=== PATIENT | female | born 1930 | race Caucasian/White ===

== ENCOUNTER → 2016-06-26 | Outpatient (CLI) | payer OTHER, MEDICARE ==
[~2016-06-26] MED LIST: CALCTAB13 PO; CYCL0.052 OPL; MULTTAB58 PO; PREMARIN PATCH TOP; ZCRUNK
--- NOTE | 2016-06-26 14:30 | MAMMOGRAPHY REPORT ---
BILATERAL DIGITAL SCREENING MAMMOGRAM WITH CAD: 06/26/2016 CLINICAL HISTORY: Routine screening examination. TECHNIQUE: Bilateral CC, MLO and right XCCM views were obtained. Current study was also evaluated w ith a Computer Aided Detection (CAD) system. COMPARISON: Comparison is made to exams dated: 05/23/2015 mammogram, 05/29/2013 mammogram, 05/31/2014 mammogram, 04/18/2012 mammogram, 04/16/2011 mammogram, and 04/09/2010 ultrasound - [facility]. BREAST COMPOSITION: There are scattered areas of fibroglandular density in both breasts. FINDINGS: There is a newly visualized 4.7 mm mass in the approximate 3:00 middle to posterior right breast, for which additional spot compression tomosynthesis views and possibly ultrasound are recom mended. There is a possible new cluster of microcalcifications in the upper outer middle to anterio r left breast, warranting additional spot magnification views. No other suspicious mass, architectural distortion or cluster of microcalcifications is seen bilater ally. IMPRESSION: ACR BI-RADS CATEGORY 0: INCOMPLETE EVALUATION: NEED ADDITIONAL IMAGING EVALUATION The newly visualized 4.7 mm mass in the approximate 3:00 right breast, and new clustered microcalcif ications in the upper outer left breast need additional imaging evaluation. The patient will be called to schedule an appointment. Approximately 10% of breast cancers are not detected with mammography. A negative mammographic repor t should not delay biopsy if a clinically suggestive mass is present. Lala Tubbs M.D. ay/:06/26/2016 10:27:39 Bond Runner: Bonny MATA(R)(M), [facility] letter sent: Addl Imaging 0 BI-RADS Code: ACR BI-RADS Category 0: Incomplete Evaluation: Need Additional Imaging Evaluation
== END | disposition home or self-care (01) ==
LOC: C.MAMM 09:27
PROVIDERS: ATTEND Family Medicine
DX: Z12.31 Encounter for screening mammogram for malignant neoplasm of breast (principal); N63 Unspecified lump in breast; R92.0 Mammographic microcalcification found on diagnostic imaging of breast

== ENCOUNTER → 2016-07-06 | Outpatient (CLI) | payer OTHER, MEDICARE ==
--- NOTE | 2016-07-06 14:26 | MAMMOGRAPHY REPORT ---
BILATERAL DIGITAL DIAGNOSTIC MAMMOGRAM TOMOSYNTHESIS AND TARGETED RIGHT ULTRASOUND: 07/06/2016 CLINICAL HISTORY: 85-year-old woman called back from screening mammography for a small circumscribed mass in the right breast and left breast microcalcification. Family history of breast cancer = 2 s isters. TECHNIQUE: Spot magnification left CC and ML, spot compression right CC and MLO tomosynthesis images were obtained. COMPARISON: Comparison is made to exams dated: 06/26/2016 mammogram, 05/23/2015 mammogram, 05/31/2014 mammogram, 05/29/2013 mammogram, 04/18/2012 mammogram, and 04/16/2011 mammogram - [facility]. BREAST COMPOSITION: There are scattered areas of fibroglandular density in both breasts. FINDINGS: The spot compression tomosynthesis views of the right breast demonstrate persistence of a well-circumscribed 4.7 x 4.2 mm mass in the approximate 3:00 middle one third of the breast. No ass ociated calcification or architectural distortion. Further characterization with ultrasound was per formed. The spot magnification CC and ML views of the left breast demonstrate a grouping of somewhat coarse calcifications which may be forming a rim in the upper outer middle one third of the left breast, th at are increased comparing to the 05/31/2014 and 05/23/2015 mammograms. Although this most likely r epresents early formation of a benign coarse calcification, a short interval follow-up diagnostic ma mmogram including spot magnification views is recommended to ensure stability in 6 months. No obvio us suspicious mass or architectural distortion is seen in the left breast. Real-time high-resolution sonographic evaluation was performed in the 2:00 to 4:00 axes of the right breast. In the 2:30 axis, 5 cm from the nipple, there is a circumscribed anechoic cyst with manager terminal ior acoustic enhancement, measuring 4.1 x 3.5 x 4.1 mm. This correlates well in size, shape and loc ation as the mammographic mass and is benign. IMPRESSION: ACR-BI-RADS CATEGORY 3: PROBABLY BENIGN, TARGETED ULTRASOUND ACR-BI-RADS CATEGORY 3: PA OBABLY BENIGN 1. A benign anechoic simple cysts in the 2:30 right breast seen on ultrasound correlates with a new ly visualized circumscribed mammographic mass. This is benign and no further close follow-up is nee ded at this time. 2. There is a small grouping of somewhat coarse calcifications in the upper outer middle one third of the left breast. This most likely represents early formation of a benign coarse calcification, b ut given the interval increase compared to prior mammograms, a short interval follow-up diagnostic m ammogram including spot magnification views of the left breast is recommended to ensure stability an d/or coarsening in 6 months. These results and recommendations were discussed with the patient at the time of the exam. She tent atively scheduled a follow-up appointment prior to leaving our department. Approximately 10% of breast cancers are not detected with mammography. A negative mammographic repor t should not delay biopsy if a clinically suggestive mass is present. Lala Tubbs M.D. ay/:07/06/2016 11:49:46 Solar[employer] Sales: Jess MATA(Qasim)(M), [facility] letter sent: Follow Up Recommended 3 BI-RADS Code: ACR-BI-RADS Category 3: Probably Benign Ultrasound BI-RADS: ACR-BI-RADS Category 3: P robably Benign
--- NOTE | 2016-07-08 07:39 | CODING QUERY NO DIAGNOSIS ---
TREATMENT RENDERED WITHOUT A DIAGNOSIS Dr. Duncan, To promote full compliance with coding requirements relating to patient care, physician participation is requested in all cases of certified coder uncertainty. Please assist us with providing a diagnosis/symptom for the test(s) below: A diagnosis/symptom was not documented on your Order. A valid diagnosis/symptom is required to bill all insurances. Please remember that we are unable to code a diagnosis of rule out, probable, possible, questionable, or suspected. Tests that require a diagnosis: * BILATERAL DIAG TOMOSYNTHESIS DIAGNOSIS: * DIAG CALL BACK MARK W/O CAD DIAGNOSIS: * ULTRASOUND BREAST LIMITED DIAGNOSIS: DATE OF SERVICE: 07/06/16 Provider Signature: Date: Thank you Alban Evans [facility] Information Management Once completed, please kindly fax back to [phone] For questions please call [phone]
== END | disposition home or self-care (01) ==
LOC: C.MAMM 11:13
PROVIDERS: ATTEND Family Medicine
DX: R92.8 Other abnormal and inconclusive findings on diagnostic imaging of breast (principal); N60.01 Solitary cyst of right breast; R92.1 Mammographic calcification found on diagnostic imaging of breast

== ENCOUNTER → 2017-01-11 | Outpatient (CLI) | payer OTHER, MEDICARE ==
--- NOTE | 2017-01-11 12:36 | MAMMOGRAPHY REPORT ---
UNILATERAL LEFT DIGITAL DIAGNOSTIC MAMMOGRAM TOMOSYNTHESIS WITH CAD: 01/11/2017 CLINICAL HISTORY: Follow-up of a probably benign grouping of somewhat coarse calcifications in the up per outer middle to anterior left breast. TECHNIQUE: Left CC and MLO 2-D and tomosynthesis images, spot indication left CC and ML views were ob tained. Current study was also evaluated with a Computer Aided Detection (CAD) system. COMPARISON: Comparison is made to exams dated: 07/06/2016 ultrasound, 07/06/2016 mammogram, 06/26/2016 mammogram, 05/23/2015 mammogram, 05/31/2014 mammogram, and 05/29/2013 mammogram - [facility]. BREAST COMPOSITION: There are scattered areas of fibroglandular density in the left breast. FINDINGS: There is a small, 2 mm grouping of somewhat coarse calcifications in the upper outer middl e to anterior left breast that demonstrates minimal coarsening comparing to the prior spot magnificat ion views and is most likely early formation of a benign rim calcification. No other suspicious mass , architectural distortion or new suspicious microcalcifications are identified. Another short inter mihir follow-up left diagnostic mammogram including spot magnification views is recommended to ensure l onger stability and/or coarsening. Annual right mammography will also be due at that time. IMPRESSION: ACR-BI-RADS CATEGORY 3: PROBABLY BENIGN There is a small grouping of somewhat coarse calcifications in the left upper outer quadrant that is stable to minimally more coarse comparing to prior spot magnification views. Although this likely re presents early formation of a benign rim calcification, another six-month follow-up left diagnostic m ammogram including spot magnification views is recommended to ensure longer stability in 6 months. A nnual right mammography will also be due at that time. These results and recommendations were discussed with the patient at the time of the exam. She tenta tively scheduled the follow-up appointment prior to leaving our department. Approximately 10% of breast cancers are not detected with mammography. A negative mammographic report should not delay biopsy if a clinically suggestive mass is present. Lala Tubbs M.D. ay/:01/11/2017 10:47:35 Pharmacy Technician Instructor: Tri [employer](Qasim)(M), [facility] letter sent: Follow Up Recommended 3 BI-RADS Code: ACR-BI-RADS Category 3: Probably Benign
== END | disposition home or self-care (01) ==
LOC: C.MAMM 10:13
PROVIDERS: ATTEND Family Medicine
DX: R92.1 Mammographic calcification found on diagnostic imaging of breast (principal)

== ENCOUNTER → 2017-04-08 | Outpatient (CLI) | payer OTHER, MEDICARE ==
[2017-04-08 12:37] LABS: BASO % 0.7 %; BASO ABS # 0.03 K/uL (0-0.2); COMPLETE YES; EOS % 1.8 %; HEMATOCRIT 39.7 % (37-47); IG% 0.2 %; LYMPH % 27.5 %; LYMPH ABS # 1.19 K/uL (1.2-3.4); MEAN CELL VOLUME 94.3 fL (80-100); MEAN CORPUSCULAR HEMOGLOBIN 32.8 pg (25-34); MEAN CORPUSCULAR HGB CONC 34.8 g/dl (32-36); MEAN PLATELET VOLUME 10.8 fL (7.4-10.4); MONO % 14.1 %; NEUT % 55.7 %; PLATELET COUNT 292 K/uL (130-400); RED BLOOD COUNT 4.21 M/uL (4.2-5.4); WHITE BLOOD COUNT 4.33 K/uL (4.8-10.8)
[2017-04-08 13:17] LABS: ALT/SGPT 23 U/L (12-78); AST/SGOT 23 U/L (15-37); BLOOD UREA NITROGEN 19 mg/dl (7-18); BUN/CREATININE RATIO 22.1 (10-20); CARBON DIOXIDE 27 mmol/L (21-32); CHLORIDE 98 mmol/L (98-107); CHOLESTEROL 186 mg/dl (0-200); CREATININE 0.87 mg/dl (0.60-1.20); GLUCOSE 88 mg/dl (70-99); POTASSIUM 4.3 mmol/L (3.5-5.1); SODIUM 130 mmol/L (136-145); TRIGLYCERIDES 161 mg/dl (0-150); VERY LOW DENSITY LIPOPROT CALC 32 mg/dl
[2017-04-08 13:27] LABS: ALB/GLOB RATIO 0.9 (0.9-2); ALKALINE PHOSPHATASE 76 U/L (45-117); CHOLESTEROL/HDL RATIO 4.2; HDL CHOLESTEROL 44 mg/dl; LDL CHOLESTEROL CALCULATED 110 mg/dl
== END | disposition home or self-care (01) ==
LOC: C.LABPVFM 07:43
PROVIDERS: ATTEND Family Medicine
DX: E03.9 Hypothyroidism, unspecified (principal); E78.5 Hyperlipidemia, unspecified; R53.83 Other fatigue; E55.9 Vitamin D deficiency, unspecified

== ENCOUNTER → 2017-07-20 | Outpatient (CLI) | payer OTHER, MEDICARE ==
--- NOTE | 2017-07-20 12:51 | MAMMOGRAPHY REPORT ---
BILATERAL DIGITAL DIAGNOSTIC MAMMOGRAM TOMOSYNTHESIS WITH CAD: 07/20/2017 CLINICAL HISTORY: Follow-up of probably benign calcifications in the upper outer anterior left breast . Also due for annual bilateral screening exam. TECHNIQUE: Bilateral breast tomosynthesis in addition to standard 2D mammography was performed. Spot magnification left CC and ML views were also obtained. Current study was also evaluated with a Comp uter Aided Detection (CAD) system. COMPARISON: Comparison is made to exams dated: 01/11/2017 mammogram, 07/06/2016 ultrasound, 07/06/2016 mammogram, 06/26/2016 mammogram, 05/23/2015 mammogram, and 05/31/2014 mammogram - [facility]. BREAST COMPOSITION: There are scattered areas of fibroglandular density in both breasts. FINDINGS: There is a circumscribed round 5 mm mass in the approximate 2:30 posterior right breast, pr eviously documented to represent a simple cyst on ultrasound. There are other round and oval circums cribed subcentimeter masses scattered bilaterally, which is a typically benign mammographic pattern, likely representing additional cysts. There are a few benign rim calcifications. The small grouping of somewhat coarse calcifications in the left upper outer quadrant have coarsened compared to the pr ior spot magnification views, now confirming a benign rim calcification. No further follow-up is nee ded at this time. No suspicious spiculated or irregular mass, asymmetry, architectural distortion or new cluster of microcalcifications is seen. IMPRESSION: ACR BI-RADS CATEGORY 2: BENIGN The somewhat coarse calcifications in the left upper outer quadrant demonstrate continued coarsening, confirming a benign rim calcification. There is no mammographic evidence of malignancy bilaterally. A 1 year screening mammogram is recommended. The patient has been verbally notified of the results. Approximately 10% of breast cancers are not detected with mammography. A negative mammographic report should not delay biopsy if a clinically suggestive mass is present. Lala Tubbs M.D. ay/:07/20/2017 09:45:45 Fountain Vending Mechanic: Felicitas MATHIS)(Analia), [facility] letter sent: Normal 1/2 BI-RADS Code: ACR BI-RADS Category 2: Benign
== END | disposition home or self-care (01) ==
LOC: C.MAMM 08:55
PROVIDERS: ATTEND Family Medicine
DX: R92.1 Mammographic calcification found on diagnostic imaging of breast (principal)